=== PATIENT | female | born 1995 | race Caucasian/White ===

== ENCOUNTER 2018-03-18 02:40 | Emergency (ER) | payer OTHER ==
[~2018-03-18] VITALS: Ht 162.6 cm; Wt 54.4 kg
[2018-03-18] MEDS ORDERED: XANAX 0.5 MG0.5 MG PO (02:52)
[2018-03-18] MEDS ORDERED: ZYRTEC10 M5 PO (02:52)
[2018-03-18] MEDS ORDERED: BIRTH CONTROL (02:53)
[2018-03-18 04:46] VITALS: BP 115/77
== END 2018-03-18 04:47 | disposition home or self-care (01) ==
LOC: M.ERS 02:40
DX: S06.0X9A Concussion with loss of consciousness of unspecified duration, initial encounter (principal); S81.011A Laceration without foreign body, right knee, initial encounter; W22.8XXA Striking against or struck by other objects, initial encounter; Y93.39 Activity, other involving climbing, rappelling and jumping off; Y92.89 Other specified places as the place of occurrence of the external cause; Y99.8 Other external cause status

== ENCOUNTER 2020-10-06 07:34 | Emergency (ER) | payer OTHER ==
[~2020-10-06] VITALS: Ht 162.6 cm; Wt 47.6 kg
[~2020-10-06 07:34] MED LIST: BIRTH CONTROL; XANAX 0.5 MG0.5 MG PO; ZYRTEC10 M5 PO
[2020-10-06 08:42] VITALS: BP 102/73
== END 2020-10-06 08:42 | disposition left against medical advice (07) ==
LOC: M.ERS 07:34
DX: M54.6 Pain in thoracic spine (principal); M25.551 Pain in right hip

== ENCOUNTER 2021-03-05 18:41 | Emergency (ER) | payer OTHER ==
[~2021-03-05] VITALS: Ht 162.6 cm; Wt 58.1 kg
[~2021-03-05 18:41] MED LIST changes: +FLAGYL500 M1 PO; +HYDROXYZINE HCL25 M2 PO
[2021-03-05 19:44] LABS: URINE BILIRUBIN NEGATIVE (Negative); URINE BLOOD NEGATIVE (Negative); URINE CLARITY CLEAR; URINE COLOR YELLOW; URINE GLUCOSE-RANDOM NEGATIVE (Negative); URINE KETONES NEGATIVE (Negative); URINE LEUKOCYTES-REFLEX NEGATIVE (Negative); URINE NITRITE-REFLEX NEGATIVE (Negative); URINE PROTEIN TRACE (Negative); URINE SPECIFIC GRAVITY >= 1.030 (1.005-1.030); URINE UROBILINOGEN 0.2 E.U./dl (0.2-1.0)
[2021-03-05] MEDS ORDERED: DOXYCYCLINE 10100 MG PO (19:53)
[2021-03-05 20:14] VITALS: BP 120/69
== END 2021-03-05 20:15 | disposition home or self-care (01) ==
LOC: M.ERS 18:41
PROVIDERS: Physician Assistant
DX: Z20.2 Contact with and (suspected) exposure to infections with a predominantly sexual mode of transmission (principal); N89.8 Other specified noninflammatory disorders of vagina

== ENCOUNTER 2021-05-16 15:49 | Emergency (ER) | payer OTHER ==
[~2021-05-16] VITALS: Ht 162.6 cm; Wt 59.0 kg
[~2021-05-16 15:49] MED LIST changes: +DOXYCYCLINE 10100 MG PO
[2021-05-16 16:33] LABS: URINE BILIRUBIN NEGATIVE (Negative); URINE BLOOD NEGATIVE (Negative); URINE CLARITY CLEAR; URINE COLOR YELLOW; URINE GLUCOSE-RANDOM NEGATIVE (Negative); URINE KETONES NEGATIVE (Negative); URINE LEUKOCYTES-REFLEX NEGATIVE (Negative); URINE NITRITE-REFLEX NEGATIVE (Negative); URINE PROTEIN NEGATIVE (Negative); URINE SPECIFIC GRAVITY 1.015 (1.005-1.030); URINE UROBILINOGEN 0.2 E.U./dl (0.2-1.0)
[2021-05-16] MEDS ORDERED: ACYCLOVIR 200200 MG PO (17:29)
[2021-05-16 17:35] VITALS: BP 110/70
== END 2021-05-16 17:35 | disposition home or self-care (01) ==
LOC: M.ERS 15:49
PROVIDERS: Emergency Medicine Emergency Medical Services
DX: A60.00 Herpesviral infection of urogenital system, unspecified (principal)

== ENCOUNTER 2021-06-27 04:14 | Emergency (ER) | payer OTHER ==
[~2021-06-27] VITALS: Ht 165.1 cm; Wt 54.4 kg
[~2021-06-27 04:14] MED LIST changes: +ACYCLOVIR 200200 MG PO
[2021-06-27 05:07] LABS: ABSOLUTE BASOPHILS 0.1 thou/uL (0.0-0.2); ABSOLUTE MONOCYTES 0.6 thou/uL (0.0-1.2); ABSOLUTE NEUTROPHILS 4.3 thou/uL (1.6-8.1); BASOPHILS 0.9 %; EOSINOPHILS 0.2 %; HEMATOCRIT 40.3 % (37.0-47.0); LYMPHOCYTES 44.1 %; MCH 34.2 pg (26.0-34.0); MCHC 34.6 g/dL (28.0-37.0); MCV 98.9 fL (80.0-100.0); MONOCYTES 7.1 %; MPV 6.7 fl. (7.2-11.1); NUCLEATED RBCS 0 /100WBC; PLATELET COUNT* 429 thou/uL (150-400); POLYS 47.7 %; RBC 4.08 mil/uL (4.20-5.00); RDW-CV 12.2 % (10.5-14.5); WBC 9.1 thou/uL (4.0-11.0)
[2021-06-27 05:29] LABS: URINE BILIRUBIN NEGATIVE (Negative); URINE BLOOD 3+ (Negative); URINE CLARITY TURBID; URINE COLOR ORANGE; URINE GLUCOSE-RANDOM NEGATIVE (Negative); URINE KETONES TRACE (Negative); URINE LEUKOCYTES-REFLEX 1+ (Negative); URINE NITRITE-REFLEX NEGATIVE (Negative); URINE PROTEIN 2+ (Negative); URINE SPECIFIC GRAVITY >= 1.030 (1.005-1.030); URINE UROBILINOGEN 0.2 E.U./dl (0.2-1.0)
[2021-06-27 05:37] LABS: CALCIUM 8.6 mg/dL (8.5-10.1); CREATININE 0.6 mg/dL (0.6-1.3); POTASSIUM 3.5 mmol/L (3.5-5.1)
[2021-06-27 05:41] LABS: ALCOHOL 152 mg/dL (<10); SALICYLATE < 2.8 mg/dL (2.8-20.0)
[2021-06-27 05:43] LABS: TOTAL BILIRUBIN 0.3 mg/dL (<0.1-1.0); TOTAL PROTEIN 8.3 g/dL (6.4-8.2)
[2021-06-27 05:45] LABS: BACTERIA-REFLEX >30 Many /HPF (None Seen); CASTS None Seen /LPF (None Seen); CRYSTALS None Seen /LPF (None Seen); MUCUS 0-3 Light strn/LPF (None Seen); SQUAMOUS 0-3 Few /LPF (0-3); TRANSITIONAL EPITHEL CELL 0-3 Few /LPF (None Seen); URINE RBC >20 Many /HPF (0-2); URINE WBC-REFLEX >25 Many /HPF (0-5); WBC CLUMPS Moderate (None Seen)
[2021-06-27 05:50] LABS: AMP/METHAMP Negative (Negative); BARBITURATES Negative (Negative); BENZODIAZEPINES POSITIVE (Negative); COCAINE Negative (Negative); METHADONE Negative (Negative); OPIATES Negative (Negative); PCP Negative (Negative); THC Negative (Negative)
[2021-06-27 05:51] LABS: ACETAMINOPHEN < 2 ug/mL (10-30)
[2021-06-27] MEDS ORDERED: MACROBID 100 M100 M1 PO (06:19)
[2021-06-27 06:39] VITALS: BP 118/80
== END 2021-06-27 06:39 | disposition home or self-care (01) ==
LOC: M.ERS 04:14
PROVIDERS: Emergency Medicine
DX: F10.129 Alcohol abuse with intoxication, unspecified (principal); Z20.822 Contact with and (suspected) exposure to COVID-19; Y90.9 Presence of alcohol in blood, level not specified; N39.0 Urinary tract infection, site not specified; Z98.890 Other specified postprocedural states; Z79.899 Other long term (current) drug therapy

== ENCOUNTER 2021-08-03 18:19 | Emergency (ER) | payer BC ==
[~2021-08-03] VITALS: Ht 165.1 cm; Wt 59.0 kg
[~2021-08-03 18:19] MED LIST changes: +MACROBID 100 M100 M1 PO
[2021-08-03] MEDS ORDERED: KLONOPIN1 MG PO (18:31)
[2021-08-03 19:50] LABS: URINE BLOOD TRACE (Negative); URINE CLARITY CLOUDY; URINE COLOR YELLOW; URINE GLUCOSE-RANDOM NEGATIVE (Negative); URINE KETONES NEGATIVE (Negative); URINE NITRITE-REFLEX NEGATIVE (Negative); URINE PROTEIN TRACE (Negative); URINE SPECIFIC GRAVITY 1.025 (1.005-1.030); URINE UROBILINOGEN 0.2 E.U./dl (0.2-1.0)
[2021-08-03 19:52] LABS: URINE BILIRUBIN 1+ (Negative); URINE LEUKOCYTES-REFLEX 2+ (Negative)
[2021-08-03 19:54] LABS: ICTOTEST (BILI CONFIRMATORY) Negative (Negative)
[2021-08-03 19:59] LABS: SQUAMOUS >10 Many /LPF (0-3)
[2021-08-03 20:00] LABS: BACTERIA-REFLEX 1-9 Few /HPF (None Seen); CASTS None Seen /LPF (None Seen); URINE RBC 3-10 Few /HPF (0-2)
[2021-08-03 20:01] LABS: CALCIUM OXALATE 0-3 Few /LPF (None Seen); MUCUS 4-6 Moderate strn/LPF (None Seen); URINE WBC-REFLEX >25 Many /HPF (0-5)
[2021-08-03] MEDS ORDERED: METRONIDAZOLE500 M4 PO (20:05)
[2021-08-03] MEDS ORDERED: DOXYCYCLINE 10100 MG PO (20:05)
[2021-08-03] MEDS ORDERED: PYRIDIUM200 MG PO (20:33)
[2021-08-03 20:44] VITALS: BP 124/73
== END 2021-08-03 20:45 | disposition home or self-care (01) ==
LOC: M.ERS 18:19
PROVIDERS: Emergency Medicine
DX: N39.0 Urinary tract infection, site not specified (principal); A59.9 Trichomoniasis, unspecified; Z98.890 Other specified postprocedural states; Z79.899 Other long term (current) drug therapy

== ENCOUNTER 2021-08-13 02:04 | Emergency (ER) | payer BC ==
[~2021-08-13] VITALS: Ht 165.1 cm; Wt 59.1 kg
[~2021-08-13 02:04] MED LIST changes: +KLONOPIN1 MG PO; +METRONIDAZOLE500 M4 PO; +PYRIDIUM200 MG PO
[2021-08-13] MEDS ORDERED: TRAZODONE HCL50 MG PO (02:21)
[2021-08-13 02:24] LABS: HEMATOCRIT 37.3 % (37.0-47.0); HEMOGLOBIN 12.3 gm/dL (12.0-15.0); MCH 32.9 pg (26.0-34.0); MCHC 32.9 g/dL (28.0-37.0); MCV 100.1 fL (80.0-100.0); MPV 7.5 fl. (7.2-11.1); NUCLEATED RBCS 0 /100WBC; PLATELET COUNT* 319 thou/uL (150-400); RBC 3.73 mil/uL (4.20-5.00); RDW-CV 12.6 % (10.5-14.5); WBC 12.6 thou/uL (4.0-11.0)
[2021-08-13 02:26] LABS: CALCIUM 8.3 mg/dL (8.5-10.1); POTASSIUM 3.5 mmol/L (3.5-5.1)
[2021-08-13 02:30] LABS: ALBUMIN 3.4 g/dL (3.4-5.0); TOTAL BILIRUBIN 0.3 mg/dL (<0.1-1.0); TOTAL PROTEIN 6.8 g/dL (6.4-8.2)
[2021-08-13 02:42] VITALS: BP 113/77
[2021-08-13 02:43] LABS: ACETAMINOPHEN < 2 ug/mL (10-30); ALCOHOL < 10 mg/dL (<10); SALICYLATE < 2.8 mg/dL (2.8-20.0)
[2021-08-13 03:38] LABS: ABSOLUTE EOSINOPHILS 0.3 thou/uL (0.0-0.7); ABSOLUTE LYMPHOCYTES 8.2 thou/uL (0.8-5.3); ABSOLUTE MONOCYTES 0.5 thou/uL (0.0-1.2); ABSOLUTE NEUTROPHILS 3.7 thou/uL (1.6-8.1); ANISOCYTOSIS Occasional; PLATELET ESTIMATE ADEQUATE
--- NOTE | 2021-08-13 11:52 | EKG ---
[place] [address] ELECTROCARDIOGRAM REPORT Name: SUNSHINE FIGUEROA Room: [facility]#: [id number] Admission: 08/13/21 Attend Phys: Discharge: 08/13/21 Date of : [birth year] Date of Service: 08/13/210 Report #: [id number] THIS REPORT FOR: //name// [facility] ED Test Date: 2021-08-13 Test Time: 02:00:31 Pat Name: SUNSHINE FIGUEROA Department: Room: Gender: F Online Marketing Specialist: [place] : 1995 Requested By: Isidra Velez Order Number: [id number] : Woo Coles Measurements Intervals [place] Rate: 106 P: 59 IN: 141 QRS: 62 QRSD: 80 T: 14 QT: 336 QTc: 447 Interpretive Statements Sinus tachycardia No previous ECG available for comparison Electronically Signed On 08-13-2021 11:52:29 BILINGUAL ACCOUNT MANAGER by Woo Coles [email or web address] <ELECTRONICALLY SIGNED> By: Woo Coles MD, [facility] 08/13/21 1152 0200 020 Woo Coles MD, FACC /EPI
== END 2021-08-13 02:42 | disposition home or self-care (01) ==
LOC: M.ERS 02:04
PROVIDERS: Emergency Medicine
DX: R41.82 Altered mental status, unspecified (principal); Z79.899 Other long term (current) drug therapy; Z90.89 Acquired absence of other organs